=== PATIENT | male | born 1955 | race Caucasian/White ===

== ENCOUNTER → 2018-09-11 13:45 | Outpatient (CLI) | payer MEDICARE, OTHER ==
--- NOTE | 2018-09-17 15:03 | EC ---
PATIENT:CORI ESCOTO DATE OF SERVICE: 09/11/18 SEX: M MEDICAL RECORD: [id number] DATE OF : 51 LOCATION:[facility] AGE OF PATIENT: 63 ADMISSION DATE: 09/11/18 REFERRING PHYSICIAN: INTERPRETING PHYSICIAN: NEVAEH ROBERTS MD ECHOCARDIOGRAM REPORT ECHO CHARGES 4 ECHO COMPLETE Date: 09/11/18 CLINICAL DIAGNOSIS: ANGINA/ALEXANDRE/ABNORMAL EKG/MURMUR ECHOCARDIOGRAPHIC MEASUREMENTS (adult normal given) AC root (d.<3.7cm) 3.3 cm LV Septum d (<1.2 cm> 1.2 cm Valve Excursion 1.9 cm LV Septum (systole) 1.6 cm Left Atria (s.<4.0cm> 4.2 cm LVPW d(<1.2cm) 1.5 cm RV (d.<2.3cm) 2.7 cm LVPW (sytole) 1.7 cm LV diastole(<5.6CM) 3.0 cm MV E-F(>70mm/sec) cm LV systole 1.4 cm LVOT Diameter 1.8 cm MV exc.(>10mm) cm Est.ejection fraction (50-75%) % DOPPLER: LVIT cm/sec A 111 cm/sec E 72.0 cm/sec LA cm/sec RVSP 40.0 mmHg LVOT 132 cm/sec AOP1/2T m/s Asc. Ao 156 cm/sec RVOT 53.0 cm/sec RA cm/sec PA 97.0 cm/sec AV Gradient Peak 9.7 mmHg AV Mean 4.5 mmHg AV Area 2.5 cm MV Gradient Peak 5.9 mmHg MV Mean 1.7 mmHg MV Area cm COMMENTS: OP - HC Protection Officer: 1 JANINE HOUSTON Manager International: 3 Dr. Calhoun TAPE# PACS Pericardial Effusion N DATE OF SERVICE: Adequate 2D, color flow imaging, spectral Doppler, and M-Mode LVH is present. LV internal dimensions are normal. Wall motion is normal. EF is greater than or equal to 55%. Aortic valve is tricuspid. No evidence of stenosis by Doppler interrogation. Left atrium is mildly dilated at 4.2 cm. Mitral valve is thickened. Mild MR. Right-sided chambers are grossly normal. Mild TR. ECHOCARDIOGRAM REPORT [id number] CORI ESCOTO TRANSINT:[id number] Voice Confirmation ID: [id number] DOCUMENT ID: [id number] NEVAEH ROBERTS MD at 1503 CC: [id number] DICTATION DATE: 09/13/18 1305 ANTIQUE AUTO MUSEUM MAINTENANCE WORKER: 09/13/18 1347 DEP CLI 09/11/18 [place] [id number] [place] [id number]
== END | disposition home or self-care (01) ==
LOC: D.HCCARDIO 13:45
PROVIDERS: ATTEND Internal Medicine Interventional Cardiology
DX: I20.9 Angina pectoris, unspecified (principal); R01.1 Cardiac murmur, unspecified

== ENCOUNTER → 2018-11-28 08:15 | Outpatient (CLI) | payer MEDICARE, OTHER ==
[~2018-11-28] VITALS: Ht 175.3 cm; Wt 80.3 kg
[2018-11-28 12:31] VITALS: Ht 175.3 cm; Wt 80.3 kg
== END | disposition home or self-care (01) ==
LOC: D.FANS 08:15
PROVIDERS: ATTEND Family Medicine
DX: E11.65 Type 2 diabetes mellitus with hyperglycemia (principal)